=== PATIENT | male | born 1935 | race Caucasian/White ===

== ENCOUNTER 2021-05-08 00:22 | Inpatient (IN) | payer BC, MEDICARE ==
[~2021-05-08] VITALS: Ht 185.4 cm; Wt 66.2 kg
--- NOTE | 2021-05-08 00:46 | NUR ---
PT AAOX4. BIBRA 99 FROM HOME FOR C/O WEAKNESS. PT HAD A FALL EPISODE AT HOME, -KO, -LOC. PLACED IN BED ON LINEN KEEPER, AND PULSE OX. AWAITING ER MD FOR EVAL AND ORDERS. NO ACUTE DISTRESS.
[2021-05-08 01:36] LABS: HEMOGLOBIN 12.2 g/dL (13.5-17.5); PLATELET COUNT (AUTO) 164 K/uL (150-450); WHITE BLOOD COUNT (AUTO) 7.6 K/uL (4.3-11.0)
[2021-05-08 01:41] LABS: BASOPHILS % (AUTO) 0.6 % (0.0-2.0); EOSINOPHILS % (AUTO) 3.4 % (0.0-6.0); HEMATOCRIT 36 % (39-51); LYMPHOCYTES # (AUTO) 0.7 K/uL (0.8-4.8); LYMPHOCYTES % (AUTO) 9.3 % (20.0-44.0); MEAN CORPUSCULAR HGB CONC 34 g/dl (31.0-36.0); MEAN CORPUSCULAR VOLUME 95 fL (80-96); MONOCYTES # (AUTO) 0.6 K/uL (0.1-1.30); MONOCYTES % (AUTO) 7.4 % (2.0-12.0); NEUTROPHILS % (AUTO) 79.3 % (43.0-81.0); RED BLOOD CELL COUNT(AUTO) 3.83 MIL/uL (4.5-6.0)
[2021-05-08 01:51] LABS: ALANINE AMINOTRANSFERASE 10 U/L (12-78); ALKALINE PHOSPHATASE 71 U/L (46-116); ASPARTATE AMINOTRANSFERASE 12 U/L (15-37); BILIRUBIN,DIRECT 0.1 mg/dL (0.0-0.2); BILIRUBIN,TOTAL 0.5 mg/dL (0.2-1.0); TOTAL PROTEIN, SERUM 6.3 g/dL (6.4-8.2)
[2021-05-08 02:41] LABS: CALCIUM, SERUM 8.7 mg/dL (8.5-10.1); CARBON DIOXIDE 24 mmol/L (21-32); CHLORIDE 107 mmol/L (98-107); GLUCOSE 93 mg/dL (74-106); POTASSIUM 4.2 mmol/L (3.5-5.1); SODIUM SERUM 139 mmol/L (136-145); UREA NITROGEN, BLOOD 23 mg/dL (7-18)
[2021-05-08] MEDS ORDERED: IV NS 0.9% 1,000 ML BAG IV ONE (03:30)
--- NOTE | 2021-05-08 04:20 | NUR ---
REMAINS IN BED, AWAITING ADMISSION.
[2021-05-08] MEDS ORDERED: MORPHINE SULFATE INJ 2 MG/ML DISP.SYRIN IV PRN (05:30)
[2021-05-08] MEDS ORDERED: TEMAZEPAM 15 MG CAPSULE PO PRN (05:30)
[2021-05-08] MEDS ORDERED: MAG HYDROX/AL HYDROX/SIMETH 30 ML UDC PO PRN (05:30)
[2021-05-08] MEDS ORDERED: Z GUARD REMEDY 2 OZ OINT TP PRN (05:30)
[2021-05-08] MEDS ORDERED: MAGNESIUM HYDROXIDE 30 ML UDC PO PRN (05:30)
[2021-05-08] MEDS ORDERED: ONDANSETRON HCL/PF 4 MG/2 ML VIAL IVP PRN (05:30)
[2021-05-08] MEDS ORDERED: HYDROCODONE/APAP 5/325MG TABLET PO PRN (05:30)
[2021-05-08] MEDS ORDERED: ACETAMINOPHEN 325 MG TABLET PO PRN (05:30)
--- NOTE | 2021-05-08 05:51 | NUR ---
RESTING COMFORTABLY. VSS. ON MONITOR AND PULSE OX.
--- NOTE | 2021-05-08 07:19 | NUR ---
TELE 322-2
[2021-05-08] MEDS ORDERED: LEVO50TA PO (08:10)
[2021-05-08] MEDS ORDERED: FLUT16SP BNOSTRILS (08:10)
[2021-05-08] MEDS ORDERED: PRAV40TA3 PO (08:10)
[2021-05-08] MEDS ORDERED: SERT100T12 PO (08:10)
[2021-05-08 08:14] VITALS: BP 124/69
--- NOTE | 2021-05-08 08:15 | NUR ---
PATIENT TRANSFERRED ON THE FLOOR, BEDSIDE REPORT GIVEN TO SEAN MARTE. PATIENT TRANSFERRED IN STABLE CONDITION.
--- NOTE | 2021-05-08 08:16 | NUR ---
BLANKET CUTTING MACHINE OPERATORBODY SHOP ESTIMATOR NOTES RECEIVED PATIENT, AWAKE A/O X 3-4 WITH SOME PERIODS OF CONFUSION FROM ER VIA GURNEY. ON ROOM AIR, TOLERATING WELL WITH NO SOB NOTED. NOT IN DISTRESS. WITH NO COMPLAINTS OF PAIN AT THIS TIME. MADE COMFORTABLE ON BED. WITH IV ACCESS AT RIGHT HAND G18, PATENT AND INTACT. SAFETY MEASURES IN PLACED. CALL LIGHT WITHIN REACH. BED ALARM ON. BED ON LOWEST AND LOCKED POSITION, SIDE RAILS UP X2. WILL CONTINUE TO MONITOR.
[2021-05-08] MEDS: PANTOPRAZOLE 40 MG TABLET.DR PO SCH (11:43)
[2021-05-08 16:00] VITALS: BP 122/73
--- NOTE | 2021-05-08 19:34 | NUR ---
FIRE EQUIPMENT INSPECTOR CLOSING NOTES PATIENT, AWAKE A/O X 3-4 WITH SOME PERIODS OF CONFUSION. ON ROOM AIR, TOLERATING WELL WITH NO SOB NOTED. NOT IN DISTRESS. WITH NO COMPLAINTS OF PAIN AT THIS TIME. WITH IV ACCESS AT LEFT HAND G20, PATENT AND INTACT. SAFETY MEASURES IN PLACED. CALL LIGHT WITHIN REACH. BED ALARM ON. BED ON LOWEST AND LOCKED POSITION, SIDE RAILS UP X2. WILL ENDORSE TO NEXT SHIFT FOR SHERON.
--- NOTE | 2021-05-08 20:15 | NUR ---
MILL HAND PLATE MILL OPENING NOTE PT A/OX3 WITH PERIODS OF FORGETFULNESS; ABLE TO MAKE NEEDS KNOWN. TOLERATING R/A WELL WITH NO SOB. EXTERNAL CARDIAC TELE MONITOR READS SR 63. DENIES PAIN OR DISCOMFORT AT THIS TIME. L WRIST #20G NS @ 75ML/HR; PATENT AND INTACT. SAFETY MEASURES IN PLACE: BED IN LOWEST LOCKED POSITION, SIDE RAILS UP X2, CALL LIGHT WITHIN EASY REACH; BED ALARMS ON. PT IN STABLE CONDITION, WILL CONT. PLAN OF CARE.
[2021-05-08 20:41] VITALS: BP 92/59
[2021-05-09 00:02] VITALS: BP 95/62
[2021-05-09] MEDS: IV NS 0.9% 1,000 ML IV PRN ×2 (05:15→23:23)
--- NOTE | 2021-05-09 06:19 | NUR ---
OR DIRECTOR CLOSING NOTE PT A/OX3 WITH PERIODS OF FORGETFULNESS; ABLE TO MAKE NEEDS KNOWN. TOLERATING R/A WELL WITH NO SOB. EXTERNAL CARDIAC TELE MONITOR READS SB 47. DENIES PAIN OR DISCOMFORT AT THIS TIME. L WRIST #20G NS @ 75ML/HR; PATENT AND INTACT. SAFETY MEASURES IN PLACE: BED IN LOWEST LOCKED POSITION, SIDE RAILS UP X2, CALL LIGHT WITHIN EASY REACH; BED ALARMS ON. PT IN STABLE CONDITION, WILL ENDORSE PLAN OF CARE TO ONCOMING MORNING RN.
[2021-05-09 06:26] LABS: BASOPHILS % (AUTO) 0.6 % (0.0-2.0); EOSINOPHILS % (AUTO) 3.6 % (0.0-6.0); HEMATOCRIT 32 % (39-51); LYMPHOCYTES # (AUTO) 0.6 K/uL (0.8-4.8); LYMPHOCYTES % (AUTO) 11.6 % (20.0-44.0); MEAN CORPUSCULAR HGB CONC 34 g/dl (31.0-36.0); MEAN CORPUSCULAR VOLUME 96 fL (80-96); MONOCYTES # (AUTO) 0.4 K/uL (0.1-1.30); MONOCYTES % (AUTO) 8.6 % (2.0-12.0); NEUTROPHILS # (AUTO) 3.7 K/uL (1.8-8.9); NEUTROPHILS % (AUTO) 75.6 % (43.0-81.0); PLATELET COUNT (AUTO) 146 K/uL (150-450); RED BLOOD CELL COUNT(AUTO) 3.35 MIL/uL (4.5-6.0); WHITE BLOOD COUNT (AUTO) 4.9 K/uL (4.3-11.0)
[2021-05-09 06:51] LABS: CALCIUM, SERUM 7.9 mg/dL (8.5-10.1); CREATININE 0.9 mg/dL (0.6-1.3); MAGNESIUM 2.3 mg/dL (1.8-2.4); PHOSPHORUS 2.9 mg/dL (2.5-4.9)
[2021-05-09 07:10] LABS: THYROID STIMULATING HORMONE 3.575 uIU/mL (0.358-3.74)
--- NOTE | 2021-05-09 07:40 | NUR ---
TELE/RN OPENING NOTE RECEIVED PT IN BED, A/OX3 WITH PERIODS OF FORGETFULNESS; ABLE TO MAKE NEEDS KNOWN. TOLERATING R/A WELL WITH NO SOB. EXTERNAL CARDIAC TELE SR 70'S. DENIES PAIN OR DISCOMFORT AT THIS TIME. L WRIST #20G WITH RUNNING NS @ 75ML/HR; PATENT AND INTACT. SAFETY MEASURES IN PLACE: BED IN LOWEST LOCKED POSITION, SIDE RAILS UP X2, CALL LIGHT WITHIN EASY REACH; BED ALARMS ON. WILL CONTINUE TO MONITOR PATIENT.
[2021-05-09] MEDS: PANTOPRAZOLE 40 MG TABLET.DR PO SCH (08:35)
--- NOTE | 2021-05-09 09:22 | NUR ---
TELE/RN NOTES PATIENT UNABLE TO TOLERATE BREAKFAST FOOD. NOTIFIED DR. MARTE DID A SIMPLE BEDSIDE EVAL SWALLOW TEST, PATIENT ABLE TO TOLERATE APPLE SAUCE/PUREED CONSISTENCY. NOTIFIED DR. ART AND CHANGED ORDER TO PUREED DIET.
--- NOTE | 2021-05-09 09:24 | NUR ---
TELE/RN NOTES- ORTHOSTATIC BP LAYING DOWN- 128/65, 56 1 MIN STANDING - 93/58, 70 3 MIN - 94/66, 71
[2021-05-09] MEDS ORDERED: IV NS 0.9% 1,000 ML IV ONE (10:30)
--- NOTE | 2021-05-09 10:43 | NUR ---
TELE/RN NOTES- IV NS BOLUS DR. ART ORDERED 1 LITER NS BOLUS. VERIFIED AND CARRIED OUT.
--- NOTE | 2021-05-09 19:22 | NUR ---
TELE/RN CLOSING NOTE PT IN BED, A/OX3 WITH PERIODS OF FORGETFULNESS; ABLE TO MAKE NEEDS KNOWN. TOLERATING R/A WELL WITH NO SOB. EXTERNAL CARDIAC TELE SR 70'S. DENIES PAIN OR DISCOMFORT AT THIS TIME. L WRIST #20G WITH RUNNING NS @ 75ML/HR; PATENT AND INTACT. KEPT PATIENT COMFORTABLE. ALL NEEDS WERE MET. SAFETY MEASURES IN PLACE: BED IN LOWEST LOCKED POSITION, SIDE RAILS UP X2, CALL LIGHT WITHIN EASY REACH; BED ALARMS ON. WILL ENDORSE TO THE NEXT SHIFT FOR SHERON.
[2021-05-09 19:35] LABS: IRON, SERUM 42 ug/dl (50-175); TOTAL IRON BINDING CAPACITY 156 ug/dl (250-450)
[2021-05-09 19:58] LABS: FERRITIN 128 ng/mL (8-388)
[2021-05-09 20:00] VITALS: BP 113/64
--- NOTE | 2021-05-09 20:38 | NUR ---
PROMPT CARE RN OPENING NOTES RECEIVED PATIENT IN BED, WATCHING TV. AOx3. ON RA AND TOLERATING WELL. NO SOB NOTED. NO S/SX OF RESPIRATORY DISTRESS NOTED. IV ACCESS IN L WRIST #20G RUNNING NS @ 75 ML/HR. NO COMPLAINTS OF PAIN AT THIS TIME. SAFETY PRECAUTIONS IN PLACE: BED IN LOWEST, LOCKED POSITION, BRAKES ON, SIDERAILS UPx2. CALL LIGHT AND TABLE WITHIN REACH. WILL CONTINUE TO MONITOR. Addendum: 05/09/21 at 2050 by SISSY HOPPER RN TELE MONITOR DETECTS SINUS BRADYCARDIA WITH RATE AT 49. DR. [facility]
[2021-05-10] VITALS: BP 135/70
[2021-05-10 04:00] VITALS: BP 126/62
[2021-05-10 06:04] LABS: BASOPHILS % (AUTO) 0.9 % (0.0-2.0); EOSINOPHILS % (AUTO) 5.3 % (0.0-6.0); HEMATOCRIT 32 % (39-51); HEMOGLOBIN 10.7 g/dL (13.5-17.5); LYMPHOCYTES # (AUTO) 0.5 K/uL (0.8-4.8); LYMPHOCYTES % (AUTO) 10.6 % (20.0-44.0); MEAN CORPUSCULAR HGB CONC 33 g/dl (31.0-36.0); MEAN CORPUSCULAR VOLUME 95 fL (80-96); MONOCYTES # (AUTO) 0.4 K/uL (0.1-1.30); MONOCYTES % (AUTO) 8.3 % (2.0-12.0); NEUTROPHILS # (AUTO) 3.6 K/uL (1.8-8.9); NEUTROPHILS % (AUTO) 74.9 % (43.0-81.0); PLATELET COUNT (AUTO) 143 K/uL (150-450); RED BLOOD CELL COUNT(AUTO) 3.35 MIL/uL (4.5-6.0); WHITE BLOOD COUNT (AUTO) 4.8 K/uL (4.3-11.0)
--- NOTE | 2021-05-10 06:32 | NUR ---
ORTHOSTATIC BLOOD PRESSURE RESULTS LYIN/62 SITTIN/58 STANDIN/58
--- NOTE | 2021-05-10 06:42 | NUR ---
RAMP ATTENDANT CLOSING NOTES PT IN BED, ASLEEP, AWAKENS TO VERBAL STIMULI. AOx3. ON RA AND TOLERATING WELL. NO SOB NOTED. NO S/SX OF RESPIRATORY DISTRESS NOTED. IV ACCESS IN L WRIST #20G RUNNING NS @ 75 ML/HR. NO COMPLAINTS OF PAIN THROUGHOUT SHIFT. ALL NEEDS MET. PT KEPT CLEAN AND DRY. SAFETY PRECAUTIONS IN PLACE: BED IN LOWEST, LOCKED POSITION, BRAKES ON, SIDERAILS UPx2. CALL LIGHT AND TABLE WITHIN REACH. WILL ENDORSE TO ONCOMING SHIFT.
[2021-05-10 07:23] LABS: CALCIUM, SERUM 7.8 mg/dL (8.5-10.1); CREATININE 0.9 mg/dL (0.6-1.3); MAGNESIUM 2.4 mg/dL (1.8-2.4); PHOSPHORUS 2.7 mg/dL (2.5-4.9)
[2021-05-10] MEDS: PANTOPRAZOLE 40 MG TABLET.DR PO SCH (08:13)
--- NOTE | 2021-05-10 13:00 | NUR ---
TELE/ALUMINA PLANT SUPERVISOR NOTES PATIENT IS ALERT AND ORIENTED X3, ABLE TO MAKE NEEDS KNOWN. STABLE ON ROOM AIR. AMBULATORY WITH ASSISTANCE. PATIENT IS MEDICALLY STABLE AND DR. ART ORDERED DISCHARGE TO HOME FOR THIS PATIENT. IV ACCESS DISCONTINUED. DISCHARGE INSTRUCTIONS GIVEN TO THE PATIENT AND THE DAUGHTER JULIANN, ABLE TO VERBALIZED UNDERSTANDING. ALL BELONGINGS ACCOUNTED FOR. PATIENT WAS PICKED UP BY DAUGHTER VIA PRIVATE CAR.
== END 2021-05-10 14:00 | disposition home or self-care (01) | DRG 312 ==
LOC: ER 00:24 → TELE 07:41
PROVIDERS: ADMIT Nurse Practitioner Acute Care; ATTEND Nurse Practitioner Acute Care
DX: I95.1 Orthostatic hypotension (principal); N17.0 Acute kidney failure with tubular necrosis; E44.1 Mild protein-calorie malnutrition; Z68.1 Body mass index [BMI] 19.9 or less, adult; F03.90 Unspecified dementia, unspecified severity, without behavioral disturbance, psychotic disturbance, mood disturbance, and anxiety; I95.9 Hypotension, unspecified; Z20.822 Contact with and (suspected) exposure to COVID-19; E88.09 Other disorders of plasma-protein metabolism, not elsewhere classified; D64.9 Anemia, unspecified; R00.1 Bradycardia, unspecified; W19.XXXA Unspecified fall, initial encounter; Z91.81 History of falling; Y93.9 Activity, unspecified; Y92.009 Unspecified place in unspecified non-institutional (private) residence as the place of occurrence of the external cause
CPT/HCPCS: 36415; 70450-TC; 71045-TC; 80048-TC; 80061-TC; 80076-TC; 82728-TC; 83540-TC; 83605-TC; 83735-TC; 84100-TC; 84443-TC; 84484-TC; 85025-TC; 87040-TC; 87081-TC; 93307-TC; 97116-TC; 97530-TC; C9803; G0378; J7030